=== PATIENT | female | born 1975 | race Caucasian/White ===

== ENCOUNTER 2019-04-17 10:18 | Emergency (ER) | payer MEDICARE, SELFPAY ==
[2019-04-17 10:26] VITALS: BP 136/67; PULSE 81; RESP 18; TEMP 37.4; O2SAT 98
--- NOTE | 2019-04-17 10:39 | ED.URI ---
HPI - URI/Sore Throat General Chief Complaint: Upper Respiratory Infection Stated Complaint: cough/congestion Time Seen by Provider: 04/17/19 10:39 Source: patient and RN notes reviewed Mode of arrival: ambulatory Limitations: no limitations History of Present Illness HPI Narrative: 43-year-old female presents to [facility] care with complaints of 1 week duration of chest congestion cough with expectoration of yellow mucus. Patient denies any nasal congestion or drainage, states some sore throat but feels it is from her coughing, denies pain with swallowing. Patient denies any acute fevers or chills or sweats does admit to having some wheezing and dyspnea with exertion. SAO2 98% on room air. MD elicited complaint: cough and sore throat Pertinent past history: other (bronchitis) Onset (ago): week(s) (1) Consistency: constant Severity: moderate Description of mucous: yellow Exacerbating factors: exertion and deep breaths Relieving factors: nothing Associated symptoms: sore throat, cough and shortness of breath Treatments prior to arrival: acetaminophen Related Data Home Medications Medication Instructions Recorded Confirmed amitriptyline 04/17/19 carbamazepine 04/17/19 ergocalciferol (vitamin D2) 04/17/19 gabapentin 04/17/19 naproxen 04/17/19 omeprazole 04/17/19 potassium chloride meq PO 04/17/19 Allergies Allergy/AdvReac Type Severity Reaction Status Date / Time hydrocodone Allergy HIVES Verified 04/17/19 10:33 Review of Systems Review of Systems: Narrative: CONSTITUTIONAL: Denies fever, chills, or sweats. EYES: Denies visual changes, redness, or discharge. ENT: Denies rhinorrhea, congestion, positive sore throat, or otalgia. CARDIOVASCULAR: Denies chest pain, palpitations, or edema. RESPIRATORY: Positive cough or dyspnea with exertion GASTROINTESTINAL: Denies abdominal pain, nausea, vomiting, or diarrhea. GENITOURINARY: Denies dysuria or hematuria. SKIN: Denies rash or itching. MUSCULOSKELETAL: Denies back pain, joint pain, or myalgia. NEUROLOGIC: Denies headache, numbness, or weakness. PSYCHIATRIC: Denies anxiety or depression. All systems reviewed & are unremarkable except as noted in HPI and below PMFSH Past Medical History Medical History (Updated 04/17/19 @ 16:43 by Jane Howard NP) Epilepsy Lower leg fracture Surgical History Surgical History (Updated 04/17/19 @ 10:56 by Jane Howard NP) Gastric bypass status for obesity History of endometrial ablation Hx of breast reduction, elective Tubal ligation status Social History Social History (Updated 04/17/19 @ 16:40 by Jane Howard NP) Smoking status: Never smoker Alcohol intake: never Living arrangements: with family Gender identity (if verbalized by the patient): Female Comments At time of signature, agree with nursing past medical, surgical, social history. There is no relevant family history pertinent to the presenting complaint Exam Narrative: Exam Narrative: GENERAL: Well-appearing, well-nourished, and in no acute distress. HEAD: Normocephalic, atraumatic. EYES: PERRLA and EOMI. ENT: Nares clear, no rhinorrhea or epistaxis. Mucous membranes moist. TMs normal with good light reflex, throat red no exudate or lesions or tonsillar swelling NECK: Supple. No lymphadenopathy CHEST: Scattered wheezing on auscultation. No respiratory distress. Dyspnea on exertion SaO2 98% on room air. No tachypnea or accessory muscle use able to speak in full sentences HEART: Regular rate and rhythm. No murmur heard. Normal peripheral pulses. ABDOMEN: Soft, nontender, nondistended, normal active bowel sounds. EXTREMITIES: Normal range of motion. No edema. SKIN: Warm, dry, no rash. NEURO: No focal deficits. Alert and oriented x3. Course Vital Signs Vital signs: Vital Signs Temperature 37.4 C 04/17/19 10:26 Pulse Rate 81 04/17/19 10:26 Respiratory Rate 18 04/17/19 10:26 Blood Pressure 136/67 04/17/19 10:26
== END 2019-04-17 11:00 | disposition home or self-care (01) ==
PROVIDERS: Emergency Provider Registered Nurse; PCP Anesthesiology
DX: J40 Bronchitis, not specified as acute or chronic (principal); J02.9 Acute pharyngitis, unspecified; Z98.84 Bariatric surgery status; G40.909 Epilepsy, unspecified, not intractable, without status epilepticus
CPT/HCPCS: 99213; G0463

== ENCOUNTER 2019-07-26 17:27 | Emergency (ER) | payer MEDICARE, SELFPAY ==
[2019-07-26 17:41] VITALS: BP 139/93; PULSE 90; RESP 16; TEMP 37.5; O2SAT 98
--- NOTE | 2019-07-26 17:51 | ED.GENADULT ---
HPI - General Adult General Chief complaint: Extremity Injury, Upper Stated complaint: head injury Time Seen by Provider: 07/26/19 17:51 Source: patient and RN notes reviewed Mode of arrival: ambulatory Limitations: no limitations History of Present Illness HPI narrative: 43-year-old female present with complains of pain and laceration of head (left frontal scalp) caused by trunk of car coming down on her head approximately 30 minutes prior to arrival. No loss of consciousness, blurred vision, double vision, dizziness, or seizure activity. Denies vertigo or immobility. Denies numbness or tingling, or weakness of upper or lower extremities. No foreign body sensation. Tetanus unknown, will up date today. Toya denies being , LMP unknown due to uterine ablation. The patient reports she have not been diagnosed with COVID-19. The patient reports she is not waiting for the results of a COVID-19 lab test. The patient reports she do not have fever, chills, weakness, fatigue, myalgia, or facial swelling. The patient reports she do not have a new or worsening cough or shortness of breath. Denies chest pain. The patient reports she do not have any rhinorrhea, congestion, sore throat, nausea, vomiting, abdominal pain, and diarrhea. Tolerating po intake well. Denies recent traveling. Denies concerns for COVID-19 or exposures been home since [id number] order except for essential household needs and return home. At this time, patient is not suspected of having COVID-19. Some parts of this dictation were generated by voice recognition software and may contain typographical and/or grammatical inaccuracies Related Data Home Medications Medication Instructions Recorded Confirmed amitriptyline 04/17/19 ergocalciferol (vitamin D2) 04/17/19 omeprazole 04/17/19 potassium chloride meq PO 04/17/19 carbamazepine 07/26/19 gabapentin 07/26/19 Allergies Allergy/AdvReac Type Severity Reaction Status Date / Time hydrocodone Allergy HIVES Verified 04/17/19 10:33 Review of Systems Review of Systems: Narrative: CONSTITUTIONAL: Denies fever, chills, sweats. EYES: Denies visual changes, redness, discharge. ENT: Denies rhinorrhea, congestion, sore throat, otalgia. CARDIOVASCULAR: Denies chest pain, palpitations, edema. RESPIRATORY: Denies dyspnea, wheezing, cough. GASTROINTESTINAL: Denies abdominal pain, nausea, vomiting, diarrhea. GENITOURINARY: Denies dysuria, hematuria, abnormal discharge. SKIN: Complains of pain and laceration of head (left frontal scalp). MUSCULOSKELETAL: Denies acute back pain, joint pain, or myalgia. NEUROLOGIC: Denies numbness, or focal weakness. PSYCHIATRIC: Denies anxiety or depression. All other systems reviewed & are unremarkable except as noted in HPI and below. [facility] Past Medical History Medical History (Updated 07/27/19 @ 00:00 by Sony Davila) Epilepsy Lower leg fracture Obese Surgical History Surgical History Gastric bypass status for obesity History of endometrial ablation Hx of breast reduction, elective Tubal ligation status Family History Family History (Updated 07/26/19 @ 18:13 by FREDO Mansfield) Father , Due to MVC No problems noted. Mother , R/T smoking Emphysema No problems noted. Social History Social History (Updated 07/26/19 @ 18:14 by FREDO Mansfield) Smoking status: Never smoker Tobacco type: cigarettes Second hand tobacco smoke exposure: No Alcohol intake: never Substance use: never Living arrangements: with family Occupation/Education: other Additional occupation/education comments: Disable Gender identity (if verbalized by the patient): Female Comments At time of signature, agree with nurse past medical, surgical, social, and family history. There is no relevant family history pertinent to the presenting complain
[2019-07-26] MEDS: TETANUS,DIPHTHERIA,AC PERTUSSIS ADULT 0.5 ML (ADACEL) IM (18:24)
--- NOTE | 2019-07-26 18:34 | PC.NURSE ---
Tylenol 1,000 mg given po at 1824.Bracelet scanned and each 500 mg Tylenol x2 was scanned. Taken without difficulty.
== END 2019-07-26 18:43 | disposition home or self-care (01) ==
PROVIDERS: Emergency Provider Nurse Practitioner Family
DX: S01.01XA Laceration without foreign body of scalp, initial encounter (principal); G40.909 Epilepsy, unspecified, not intractable, without status epilepticus; E66.9 Obesity, unspecified; Z68.41 Body mass index [BMI] 40.0-44.9, adult; Z23 Encounter for immunization; Z98.84 Bariatric surgery status; R03.0 Elevated blood-pressure reading, without diagnosis of hypertension; W20.8XXA Other cause of strike by thrown, projected or falling object, initial encounter
CPT/HCPCS: 90471; 90715; 99212; G0463

== ENCOUNTER 2020-01-25 07:05 | Outpatient (NON) | payer MEDICARE, SELFPAY ==
[2020-01-25 18:29] LABS: SARS-CoV-2 RNA PCR Positive
== END 2020-01-25 07:06 ==
LOC: ANHCOVIDDT 07:09
PROVIDERS: Visit Provider Student in an Organized Health Care Education/Training Program
DX: U07.1 COVID-19 (principal)
CPT/HCPCS: 87635; C9803; U0003

== ENCOUNTER 2020-03-28 16:06 | Emergency (ER) | payer MEDICARE, SELFPAY ==
[2020-03-28] VITALS (16 sets, daily range): BP systolic 125–180; BP diastolic 42–136; PULSE 78–83; RESP 18; TEMP 36.8; O2SAT 92–100
--- NOTE | ~2020-03-28 | CT_ITS ---
EXAMINATION: CT brain wo con DATE: 03/28/2020 17:33 INDICATION: New onset of headaches. History of epilepsy. TECHNIQUE: Computed tomography (CT) of the head was performed without intravenous contrast. The dose- length product was 605.33 mGy-cm. Automated exposure control and iterative reconstruction technique were employed. COMPARISON: None FINDINGS: There is a right frontal ventriculoperitoneal shunt with the tip in the right lateral ventr icle. Mild ventriculomegaly. There is encephalomalacia of the right frontal lobe. There is suggestion of developmental dysgenesis. There are dystrophic calcifications in the right parietal lobe adjacen t to areas of encephalomalacia. No acute intracranial hemorrhage, infarction or mass. No prior studie s are available to assess for interval change. IMPRESSION: 1. No acute intracranial abnormality, although no prior studies are available to assess for interval change. 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 Right ventriculoperitoneal shunt in the right lateral ventricle with encephalomalacia of the right frontal-parietal lobes. Reviewed, dictated and finalized at location A. [employer] IMPRESSION: 1. No acute intracranial abnormality, although no prior studies are available t o assess for interval change. 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 Right ventriculoperiton eal shunt in the right lateral ventricle with encephalomalacia of the right fro ntal-parietal lobes.
--- NOTE | 2020-03-28 17:13 | ED.HA ---
HPI - Headache General Chief Complaint: Headache Stated Complaint: headaches Time Seen by Provider: 03/28/20 17:04 Source: patient Mode of arrival: ambulatory Limitations: no limitations History of Present Illness HPI Narrative: Patient is a 44-year-old female who presents complaining of intermittent headaches x2 weeks. Patient reports having intense headaches with pain that she rates as 10/10 that last approximately 20 minutes at a time. Patient reports these episodes have been happening 4-5 times a day. Patient denies a history of migraines. Patient has a history of seizures but reports not having a seizure in at least 6 year. Patient denies photophobia, blurred vision or nausea during headaches. Patient reports headaches resolved without [id number] medications. She reports headaches seem to be more intense with position changes. She denies active headache at this time. MD elicited complaint: headache Pertinent past history: other Related Data Home Medications Medication Instructions Recorded Confirmed amitriptyline 04/17/19 ergocalciferol (vitamin D2) 04/17/19 omeprazole 04/17/19 potassium chloride meq PO 04/17/19 carbamazepine 07/26/19 gabapentin 07/26/19 Allergies Allergy/AdvReac Type Severity Reaction Status Date / Time hydrocodone Allergy HIVES Verified 03/28/20 16:34 Review of Systems Review of Systems: Narrative: CONSTITUTIONAL: Denies fever, chills, or sweats. EYES: Denies visual changes, redness, or discharge. ENT: Denies rhinorrhea, congestion, sore throat, or otalgia. CARDIOVASCULAR: Denies chest pain, palpitations, or edema. RESPIRATORY: Denies cough or dyspnea. GASTROINTESTINAL: Denies abdominal pain, nausea, vomiting, or diarrhea. GENITOURINARY: Denies dysuria or hematuria. SKIN: Denies rash or itching. MUSCULOSKELETAL: Denies back pain, joint pain, or myalgia. NEUROLOGIC: Reports intermittent headaches, denies numbness, dizziness, or weakness. PSYCHIATRIC: Denies anxiety or depression. [facility] Past Medical History Medical History (Updated 03/28/20 @ 20:38 by FREDO Mallory) Epilepsy Lower leg fracture Obese Surgical History Surgical History (Updated 03/28/20 @ 20:08 by FREDO Mallory) Gastric bypass status for obesity History of endometrial ablation Hx of breast reduction, elective S/P FORCER MAKER shunt Tubal ligation status Family History Family History Father , Due to MVC No problems noted. Mother , R/T smoking Emphysema No problems noted. Social History Social History Smoking status: Never smoker Tobacco type: cigarettes Second hand tobacco smoke exposure: No Alcohol intake: never Substance use: never Additional occupation/education comments: Disable Gender identity (if verbalized by the patient): Female Comments At the time of signature, I have reviewed and agree with nursing past medical, surgical, social, and family history unless otherwise noted. Please see nursing chart for further information. There is no relevant family history pertinent to the presenting complaint. Exam Narrative: Exam Narrative: GENERAL: Well-appearing, well-nourished, and in no acute distress. HEAD: Normocephalic, atraumatic. EYES: EOMI. No redness or drainage. Conjunctiva are normal. ENT: Mucous membranes pink and moist. Nares clear. No rhinorrhea. TMs normal bilaterally. Throat normal. Uvula midline. NECK: AROM. Supple. No lymphadenopathy. CHEST: No respiratory distress. Clear to auscultation. HEART: Regular rate and rhythm. EXTREMITIES: Normal range of motion. No edema. SKIN: Warm, dry, no rash. NEURO: No focal deficits. Alert and oriented x3. Gait steady. PSYCH: Normal affect. No signs of depression or anxiety. Course Course Emergency Course: Patient has critical potassium at this time. Patient'
[2020-03-28] MEDS: SODIUM CHLORIDE 0.9% IV 1,000 ML 999 ML IV CONT (17:45)
[2020-03-28 18:52] LABS: Basophils Percent Auto 0.5 % (0.2-1.2); Eosinophils Absolute Auto 0.1 K/mm3 (0-0.3); Hematocrit 44.3 % (37.0-47.0); Hemoglobin 14.2 g/dL (12.0-15.0); Immature Granulocyte Absolute 0.02 K/mm3 (0.00-0.031); Immature Granulocyte Percent A 0.3 % (0-0.5); Lymphocytes Absolute Auto 1.76 K/mm3 (0.9-3.2); Lymphocytes Percent Auto 28.9 % (18.3-44.2); Mean Corpuscular HGB Conc 32.1 g/dl (32-36); Mean Corpuscular Volume 90.6 fl (80-100); Mean Platelet Volume 10.6 fl (7.4-10.4); Monocytes Absolute Auto 0.4 K/mm3 (0.1-0.6); Monocytes Percent Auto 6.6 % (2.6-8.5); Neutrophils Absolute Auto 3.8 K/mm3 (1.3-6.7); Neutrophils Percent Auto 62.7 % (45.5-73.1); Platelet Count Result 193 k/mm3 (150-375); Red Blood Count 4.89 M/mm3 (4.2-5.4); Red Cell Distribution Width 15.7 % (11.5-14.5); White Blood Count 6.1 K/mm3 (4.5-10.0)
[2020-03-28 19:09] LABS: Alanine Aminotransferase 11 U/L (4-35); Albumin Level 3.4 g/dL (3.5-5.1); Alkaline Phosphatase 176 U/L (38-126); Anion Gap 4 mmol/L (8-16); Aspartate Amino Transferase 19 U/L (14-36); Bilirubin,Total 0.4 mg/dL (0.2-1.3); Blood Urea Nitrogen 3 mg/dL (7-17); Calcium 8.4 mg/dL (8.4-10.2); Carbon Dioxide 27 mmol/L (22-30); Chloride 109 mmol/L (98-107); Estimated CRCL calculation 127 ml/min; Estimated Glomerular Filt Rate > 60; Glucose 83 mg/dL (65-105); Potassium 2.7 mmol/L (3.4-5.0); Sodium 140 mmol/L (137-145)
--- NOTE | 2020-03-28 19:47 | ECG_ITS ---
Measurements Intervals [place] Rate: 68 P: 29 NJ: 168 QRS: 35 QRSD: 81 T: -6 QT: 414 QTc: 441 Interpretive Statements SINUS RHYTHM BORDERLINE ST-T WAVE ABNORMALITY- ANT/INF LEADS BASELINE ARTIFACT- I, II, AVR BORDERLINE ECG Electronically Signed On 03-29-2020 7:06:54 RESIDENT ASSOCIATE by Dalton Blake D.O.
[2020-03-28] MEDS: POTASSIUM BICARBONATE 25 MEQ TABEF 50 MEQ PO (20:29)
== END 2020-03-28 20:50 | disposition left against medical advice (07) ==
PROVIDERS: Emergency Provider Nurse Practitioner; PCP Student in an Organized Health Care Education/Training Program
DX: R51.9 Headache, unspecified (principal); G40.909 Epilepsy, unspecified, not intractable, without status epilepticus
CPT/HCPCS: 36415; 70450; 80053; 85025; 93005; 96360; 99284; A9270; J7030

== ENCOUNTER 2020-03-30 16:04 | Emergency (ER) | payer MEDICARE, SELFPAY ==
[2020-03-30 16:10] VITALS: BP 138/82; PULSE 79; RESP 18; TEMP 36.2; O2SAT 98
[2020-03-30 16:25] LABS: Basophils Percent Auto 0.4 % (0.2-1.2); Eosinophils Absolute Auto 0.1 K/mm3 (0-0.3); Eosinophils Percent Auto 1.3 % (0-4.4); Hematocrit 41.3 % (37.0-47.0); Hemoglobin 13.6 g/dL (12.0-15.0); Immature Granulocyte Absolute 0.03 K/mm3 (0.00-0.031); Immature Granulocyte Percent A 0.3 % (0-0.5); Lymphocytes Absolute Auto 1.91 K/mm3 (0.9-3.2); Lymphocytes Percent Auto 21.4 % (18.3-44.2); Mean Corpuscular HGB Conc 32.9 g/dl (32-36); Mean Corpuscular Hemoglobin 29.6 pg (26-34); Mean Platelet Volume 10.9 fl (7.4-10.4); Monocytes Absolute Auto 0.6 K/mm3 (0.1-0.6); Monocytes Percent Auto 6.3 % (2.6-8.5); Neutrophils Absolute Auto 6.3 K/mm3 (1.3-6.7); Neutrophils Percent Auto 70.3 % (45.5-73.1); Platelet Count Result 218 k/mm3 (150-375); Red Blood Count 4.59 M/mm3 (4.2-5.4); Red Cell Distribution Width 15.6 % (11.5-14.5); White Blood Count 8.9 K/mm3 (4.5-10.0)
[2020-03-30 16:32] LABS: Alanine Aminotransferase 11 U/L (4-35); Albumin Level 3.6 g/dL (3.5-5.1); Alkaline Phosphatase 149 U/L (38-126); Anion Gap 4 mmol/L (8-16); Aspartate Amino Transferase 18 U/L (14-36); Bilirubin,Total 0.2 mg/dL (0.2-1.3); Blood Urea Nitrogen 9 mg/dL (7-17); Calcium 8.4 mg/dL (8.4-10.2); Carbon Dioxide 30 mmol/L (22-30); Chloride 104 mmol/L (98-107); Estimated CRCL calculation 106 ml/min; Estimated Glomerular Filt Rate > 60; Glucose 86 mg/dL (65-105); Potassium 3.2 mmol/L (3.4-5.0); Sodium 138 mmol/L (137-145)
--- NOTE | 2020-03-30 16:47 | PC.NURSE ---
Patient presents ambulatory to the room with steady gait. She reports only complaint is headache to the front of her head which has been present for approximately 1 day. Headache pain is rated 5/10 and described as dull. She denies any other symptoms. Patient has not taken any medication for the headache today.
--- NOTE | 2020-03-30 17:17 | ED.RECABL ---
HPI - Recheck/Abnormal Lab/Rx General Chief Complaint: Recheck/Abnormal Lab/Rx Stated Complaint: abnormal labs Time Seen by Provider: 03/30/20 16:51 Source: patient Mode of arrival: ambulatory Limitations: no limitations History of Present Illness HPI narrative: Patient presents to the emergency department for hypokalemia. Reports she was seen here for this a couple of days ago and signed out AMA. She has been taking [id number] potassium supplements since. Reports history of hypokalemia in the past, that she has attributed to her gastric bypass. Otherwise has no complaints right now. Related Data Home Medications Medication Instructions Recorded Confirmed amitriptyline 04/17/19 ergocalciferol (vitamin D2) 04/17/19 omeprazole 04/17/19 potassium chloride meq PO 04/17/19 carbamazepine 07/26/19 gabapentin 07/26/19 Allergies Allergy/AdvReac Type Severity Reaction Status Date / Time hydrocodone Allergy HIVES Verified 03/28/20 16:34 Review of Systems Review of Systems: Narrative: CONSTITUTIONAL: Denies fever CARDIOVASCULAR: Denies chest pain RESPIRATORY: Denies dyspnea. GASTROINTESTINAL: Denies abdominal pain, nausea, vomiting, or diarrhea. All systems reviewed & are unremarkable except as noted in HPI and below PMFSH Past Medical History Medical History (Updated 03/30/20 @ 17:20 by Rylie Pritchard PA-C) Epilepsy Lower leg fracture Obese Surgical History Surgical History (Updated 03/28/20 @ 20:08 by FREDO Mallory) Gastric bypass status for obesity History of endometrial ablation Hx of breast reduction, elective S/P CONTRACTS ADVISOR shunt Tubal ligation status Family History Family History Father , Due to MVC No problems noted. Mother , R/T smoking Emphysema No problems noted. Social History Social History Smoking status: Never smoker Tobacco type: cigarettes Second hand tobacco smoke exposure: No Alcohol intake: never Substance use: never Additional occupation/education comments: Disable Gender identity (if verbalized by the patient): Female Exam Narrative: Exam Narrative: GENERAL: Well-appearing, well-nourished, and in no acute distress. HEAD: Normocephalic, atraumatic. EYES: EOMI. ENT: Mucous membranes moist. Oropharynx without tonsillar hypertrophy exudate or other lesions. CHEST: Clear to auscultation. No respiratory distress. No wheezes rales or rhonchi HEART: Regular rate and rhythm. No murmur heard. Normal peripheral pulses. EXTREMITIES: Normal range of motion. No edema. SKIN: Warm, dry, no rash. NEURO: No focal deficits. Alert and oriented x3. PSYCH: Normal mood and affect Course Vital Signs Vital signs: Vital Signs Temperature 97.2 F L 03/30/20 16:10 Pulse Rate 79 03/30/20 16:10 Respiratory Rate 18 03/30/20 16:10 Blood Pressure 138/82 03/30/20 16:10 Pulse Oximetry 98 03/30/20 16:10 Temperature 97.2 F L 03/30/20 16:10 Pulse Rate 79 03/30/20 16:10 Respiratory Rate 18 03/30/20 16:10 Blood Pressure 138/82 03/30/20 16:10 Pulse Oximetry 98 03/30/20 16:10 MDM - Recheck/Abnormal Lab/Rx MDM Narrative Medical decision making narrative: Patient presents to the emergency department for hypokalemia. Potassium rechecked today is 3.2. Will be given a dose of oral potassium in the ED and was instructed to follow-up with her primary doctor. She has no other complaints today. She is stable and felt appropriate for further outpatient evaluation. She was given warnings to return the ER Lab Data Attestation: I reviewed the patient's lab results. Result diagrams: 03/30/20 16:14 03/30/20 16:14 Labs: Lab Results 03/30/20 03/30/20 Range/Units 16:14 16:14 WBC 8.9 (4.5-10.0) K/mm3 RBC 4.59 (4.2-5.4) M/mm3 Hgb 13.6 (12.0-15.0) g/dL Hct 41
[2020-03-30 18:04] VITALS: BP 130/88; PULSE 74; RESP 19; TEMP 36.6; O2SAT 97
[2020-03-30] MEDS: POTASSIUM CHLORIDE 20 MEQ TABLET 40 MEQ PO (18:46)
[2020-03-30 18:49] VITALS: PULSE 91; RESP 18; TEMP 36.3; O2SAT 98
== END 2020-03-30 18:52 | disposition home or self-care (01) ==
PROVIDERS: Emergency Provider Emergency Medicine; PCP Student in an Organized Health Care Education/Training Program
DX: E87.6 Hypokalemia (principal); G40.909 Epilepsy, unspecified, not intractable, without status epilepticus; E66.9 Obesity, unspecified; Z68.41 Body mass index [BMI] 40.0-44.9, adult; Z98.84 Bariatric surgery status
CPT/HCPCS: 36415; 80053; 85025; 99283; A9270

== ENCOUNTER → 2020-08-21 15:40 | Outpatient (CLI) | payer MEDICARE, SELFPAY ==
--- NOTE | ~2020-08-21 | MM_ITS ---
EXAMINATION: MM screening elyssa BI w venkat HISTORY: Screening TECHNIQUE: Craniocaudal and mediolateral oblique 3-D tomosynthesis images were obtained and synthetic 2-D images were generated. CAD analysis was submitted and interpreted. COMPARISON: No prior mammogram is available for comparison at this institution. BREAST PARENCHYMAL COMPOSITION: The breasts are almost entirely fatty. FINDINGS: There is no evidence of suspicious mass, calcification, or architectural distortion to sugg est malignancy in either breast. There has been no suspicious interval change. IMPRESSION: 1. No mammographic evidence of malignancy. 2. Recommend routine screening mammography in one year. BI-RADS Category 1: Negative Reviewed, dictated and finalized at location A.
== END ==
PROVIDERS: PCP Student in an Organized Health Care Education/Training Program; Visit Provider Student in an Organized Health Care Education/Training Program
DX: Z12.31 Encounter for screening mammogram for malignant neoplasm of breast (principal)
CPT/HCPCS: 77063; 77067

== ENCOUNTER 2021-07-30 11:39 | Emergency (ER) | payer MEDICARE, SELFPAY ==
--- NOTE | ~2021-07-30 | XR_ITS ---
EXAMINATION: XR knee LT 3V DATE: 07/30/2021 12:06 INDICATION: Left knee pain. Fall. TECHNIQUE: 4 views of left knee were obtained. COMPARISON: None. FINDINGS: Bone alignment is normal. No fracture. There is mild tricompartmental osteoarthritis. No kn ee joint effusion. IMPRESSION: 1. Mild left knee osteoarthritis. Reviewed, dictated and finalized at location A.
[2021-07-30 11:52] VITALS: BP 127/76; PULSE 72; RESP 18; TEMP 36.3; O2SAT 100
--- NOTE | 2021-07-30 11:55 | ED.EXTPRO ---
HPI - Extremity Problem General Chief complaint: Extremity Problem,Nontraumatic Stated complaint: Lt Knee Pain and Swelling Time Seen by Provider: 07/30/21 11:55 History of Present Illness HPI Narrative: Toya Ivy is a 45 yo female with PMH of epilepsy who [facility] after fall while on the floor tripped and hurt her left knee. The pain is now radiating to the back of the knee patient states that feels like it may have water on it It appears swollen, pain is worse with pain radiating to back of knee; taking tylenol, has not improved. She fell several times in water but no specific hard fall. Related Data Home Medications Medication Instructions Recorded Confirmed carbamazepine 300 mg 1 cap PO DAILY 07/30/21 07/30/21 capsule,extended release [id number] gabapentin 400 mg capsule 1 cap PO BID 07/30/21 07/30/21 Allergies Allergy/AdvReac Type Severity Reaction Status Date / Time hydrocodone AdvReac Mild HIVES Verified 07/30/21 11:44 Review of Systems Review of Systems: CONSTITUTIONAL: Denies fever, chills, sweats. EYES: Denies visual changes, redness, discharge. ENT: Denies rhinorrhea, congestion, sore throat, otalgia. CARDIOVASCULAR: Denies chest pain, palpitations, edema. RESPIRATORY: Denies dyspnea, wheezing, cough GASTROINTESTINAL: Denies abdominal pain, nausea, vomiting, diarrhea. GENITOURINARY: Denies dysuria, hematuria, abnormal discharge SKIN: Denies rash or itching. NEUROLOGIC: Denies numbness, or focal weakness. PSYCHIATRIC: Denies anxiety or depression. Left knee pain remote injury [facility] Past Medical History Medical History (Updated 07/30/21 @ 12:30 by Bri Lopez CNP) Bacterial meningitis Epilepsy Hydrocephalus Lower leg fracture Obese Surgical History Surgical History Gastric bypass status for obesity History of endometrial ablation Hx of breast reduction, elective S/P STAMPER BLOCKER shunt Tubal ligation status Family History Family History Father , Due to MVC No problems noted. Mother , R/T smoking Emphysema No problems noted. Social History Social History Smoking status: Never smoker Tobacco type: cigarettes Second hand tobacco smoke exposure: No Alcohol intake: never Substance use: never Additional occupation/education comments: Disable Gender identity (if verbalized by the patient): Female Comments At time of signature, I agree with nursing past medical, surgical, social and family history. There is no relevant family history pertinent to the presenting complaint. Exam Narrative: GENERAL: This is a well-nourished, well-developed patient, in mild distress. HEAD: normocephalic, atraumatic. EYES: Sclera clear/white. Vision is grossly intact. EARS: External ears normal, a Hearing grossly intact. NOSE: External nose normal without nasal discharge, nares without redness, no rhinorrhea. THROAT: Mucous membranes moist, NECK: Neck supple, non-tender CARDIOVASCULAR: Regular rate and rhythm without murmurs, gallops, or rubs. RESPIRATORY: Clear to auscultation. Breath sounds equal bilaterally. No wheezes, rales, or rhonchi. GASTROINTESTINAL: A not done SKIN: warm, intact with no suspicious lesions or rash, good texture and turgor. NEURO: awake, alert, and oriented to person, place and time. There were no obvious focal neurologic abnormalities. Steady gait EXTREMITIES: Normal range of motion. L knee: BACK: Nontender without deformity Course Course Emergency Course: Patient comes to [facility] for evaluation of left knee pain with remote injury ,after fall on while on [employer] X-ray of the knee shows mild knee arthritis with normal bone alignment no fracture and mild tricompartment compartmental osteoarthritis, no joint effusion presen
[2021-07-30 11:59] VITALS: BP 127/76; PULSE 72; RESP 18; TEMP 36.3; O2SAT 100
== END 2021-07-30 12:32 | disposition home or self-care (01) ==
PROVIDERS: Emergency Provider Nurse Practitioner; PCP Student in an Organized Health Care Education/Training Program
DX: M25.562 Pain in left knee (principal); G40.909 Epilepsy, unspecified, not intractable, without status epilepticus; E66.9 Obesity, unspecified; Z68.41 Body mass index [BMI] 40.0-44.9, adult; Q03.9 Congenital hydrocephalus, unspecified; Z98.2 Presence of cerebrospinal fluid drainage device
CPT/HCPCS: 73562; 99213; G0463; L1830

== ENCOUNTER 2021-09-08 10:03 | Emergency (ER) | payer MEDICARE, SELFPAY ==
--- NOTE | 2021-09-08 10:50 | ED.SKABFB ---
HPI - Skin/Abscess/Foreign Bdy General Chief complaint: Skin/Abscess/Foreign Body Stated complaint: rash Time Seen by Provider: 09/08/21 10:42 Source: patient Mode of arrival: ambulatory Limitations: no limitations History of Present Illness HPI narrative: Patient presents today complaining of a rash to her abdomen that she noted this morning. She reports burning to the rash, but denies itching. She has tried no [id number] treatment prior to arrival. She denies any new medications or household products such as laundry detergents, fabric softeners, new foods, new animal or plant contacts. She has not been on any recent antibiotics. No recent illnesses or fevers. Related Data Home Medications Medication Instructions Recorded Confirmed carbamazepine 300 mg 1 cap PO DAILY 07/30/21 09/08/21 capsule,extended release [id number] gabapentin 400 mg capsule 1 cap PO BID 07/30/21 07/30/21 Allergies Allergy/AdvReac Type Severity Reaction Status Date / Time hydrocodone AdvReac Mild HIVES Verified 07/30/21 11:44 Review of Systems Review of Systems: CONSTITUTIONAL: Denies body aches, fever, chills, or sweats. EYES: Denies visual changes, redness, or discharge. ENT: Denies rhinorrhea, congestion, sore throat, or otalgia. CARDIOVASCULAR: Denies chest pain, palpitations, or edema. RESPIRATORY: Denies cough or dyspnea. GASTROINTESTINAL: Denies abdominal pain, nausea, vomiting, or diarrhea. GENITOURINARY: Denies dysuria or hematuria. SKIN: Denies itching, or wounds.+ Rash MUSCULOSKELETAL: Denies back pain, joint pain, or myalgia. NEUROLOGIC: Denies headache, numbness, tingling, or weakness. PSYCH: Denies depression or anxiety. [facility] Past Medical History Medical History Bacterial meningitis Epilepsy Hydrocephalus Lower leg fracture Obese Surgical History Surgical History Gastric bypass status for obesity History of endometrial ablation Hx of breast reduction, elective S/P FIRST MATE shunt Tubal ligation status Family History Family History Father , Due to MVC No problems noted. Mother , R/T smoking Emphysema No problems noted. Social History Social History Smoking status: Never smoker Tobacco type: cigarettes Second hand tobacco smoke exposure: No Alcohol intake: never Substance use: never Additional occupation/education comments: Disable Gender identity (if verbalized by the patient): Female Comments At time of signature, I have reviewed and agree with nursing past medical, surgical, social and family history unless otherwise noted. Please see nursing chart for further information. There is no relevant family history pertinent to the presenting complaint Exam Narrative: GENERAL: Well-appearing, well-nourished, and in no acute distress. HEAD: Normocephalic, atraumatic. EYES: EOMI. No redness or drainage. Conjunctivae normal. ENT: Mucous membranes pink and moist. NECK: Normal AROM. CHEST: No respiratory distress. ABDOMEN: Soft, nontender, nondistended. MUSCULOSKELETAL: No bony tenderness. EXTREMITIES: Normal range of motion. No edema. SKIN: Warm, dry. Capillary refill normal. Normal skin turgor. Erythematous, blanchable, macular rash covering most of the abdomen, with few papules. The rash is sensitive to touch. No vesicles or areas of induration. Rash does not extend to any other parts of the body. NEURO: No focal deficits. Alert and oriented x3. Gait steady. PSYCH: Normal affect. No signs of depression or anxiety. Course Course Level of Care: Express Care Visit Vital Signs Vital signs: Vital Signs Temperature 98.5 F 09/08/21 10:52 Pulse Rate 97 09/08/21 10:52 Respiratory Rate 20 09/08/21 10:
[2021-09-08 10:52] VITALS: BP 131/89; PULSE 97; RESP 20; TEMP 36.9; O2SAT 99
== END 2021-09-08 11:01 | disposition home or self-care (01) ==
PROVIDERS: Emergency Provider Nurse Practitioner; PCP Student in an Organized Health Care Education/Training Program
DX: L30.9 Dermatitis, unspecified (principal); G40.909 Epilepsy, unspecified, not intractable, without status epilepticus; G91.9 Hydrocephalus, unspecified; Z98.2 Presence of cerebrospinal fluid drainage device; E66.9 Obesity, unspecified; Z68.41 Body mass index [BMI] 40.0-44.9, adult; Z86.61 Personal history of infections of the central nervous system; Z98.84 Bariatric surgery status
CPT/HCPCS: 99213; G0463

== ENCOUNTER 2022-01-24 10:30 | Emergency (ER) | payer MEDICARE, SELFPAY ==
--- NOTE | ~2022-01-24 | XR_ITS ---
EXAMINATION: SACRUM/COCCYX DATE: 01/24/2022 13:10 INDICATION: Tail bone pain and low back pain after fall TECHNIQUE: Three views sacrum/coccyx FINDINGS: No prior studies for comparison. There is no displaced fracture of the sacrum. The coccyx demonstrates overall normal morphology with out acute angulation. IMPRESSION: 1. No acute displaced osseous abnormality of the sacrum. Suspicion for occult or nondisplaced sacral fracture can either be evaluated with CT or MRI. 2. Grossly normal morphology to the coccyx without acute angulation. However, due to the wide range of normal variation of the coccyx, acute injury would be best evaluated by clinical examination and patient's symptoms. Reviewed, dictated and finalized at location A. BLACKER
--- NOTE | ~2022-01-24 | XR_ITS ---
XR lumbar spine min 4V 01/24/2022 13:10 Indication: Status post fall. Low back pain. Procedure: 5 views lumbar spine Comparison: No prior studies for comparison. Findings: There is a superior endplate compression fracture of L1 with approximately 30% loss of vert ebral body height, age indeterminate. Cannot exclude acute fracture. There is grade 1 spondylolisthes is at L5-S1 secondary to spondylolysis. Osteopenia. Impression: 1: Superior endplate compression fracture of L1, possibly acute. 2: Grade 1 spondylolisthesis at L5-S1 secondary to spondylolysis. Reviewed, dictated and finalized at location A. INSTRUMENT REPAIRER Impression: 1: Superior endplate compression fracture of L1, possibly acute. 2: Grade 1 spondylolisthesis at L5-S1 secondary to spondylolysis.
--- NOTE | ~2022-01-24 | CT_ITS ---
EXAMINATION: CT lumbar spine wo con DATE: 01/24/2022 14:46 INDICATION: L1 compression fx, include sacrum/coccyx . TECHNIQUE: Computed tomography (CT) of the lumbar spine was performed without intravenous contrast. A utomated exposure control and iterative reconstruction technique were employed. The dose-length produ ct was 1556.30 mGy-cm. COMPARISON: X-ray L-spine 01/24/2022. FINDINGS: 5 nonrib-bearing lumbar-type vertebral bodies. Pedicles intact. Normal vertebral body align ment. Moderate height loss at L1 with a superior endplate fracture that involves the anterior and pos terior cortices. 2 mm retropulsion. Mild disc bulge at L3-4. Moderate disc bulges at L4-5 and L5-S1. Moderate bilateral neural foraminal narrowing at L5-S1. No severe central canal stenosis. Bilateral p ars defects at L5, otherwise normal facets and posterior elements. IMPRESSION: L1 burst fracture with moderate height loss and 2 mm retropulsion. Reviewed, dictated and finalized at location K. [employer]FORMAT[employer] SPEC
[2022-01-24 11:13] VITALS: BP 135/90; PULSE 81; RESP 16; TEMP 36.4; O2SAT 99
--- NOTE | 2022-01-24 12:50 | ED.FALL ---
HPI - Fall General Chief Complaint: Fall Stated Complaint: fall Time Seen by Provider: 01/24/22 11:18 Source: patient Mode of arrival: ambulatory Limitations: no limitations History of Present Illness HPI Narrative: Patient is a 46-year-old female who presents the ED with report of a fall. Patient reports she was walking her dog this morning when she tripped and fell. She landed straight onto her back/buttocks. No head injury or LOC. She complains of pain to her lower back. Denies any other areas of pain, no neck pain, chest pain, difficulty breathing, abdominal pain, nausea, vomiting. Patient denies numbness, weakness, bowel or bladder incontinence. She has not taken anything for pain. Related Data Home Medications Medication Instructions Recorded Confirmed carbamazepine 300 mg 1 cap PO DAILY 07/30/21 09/08/21 capsule,extended release [id number] gabapentin 400 mg capsule 1 cap PO BID 07/30/21 07/30/21 Allergies Allergy/AdvReac Type Severity Reaction Status Date / Time hydrocodone AdvReac Mild HIVES Verified 01/24/22 11:13 Review of Systems Review of Systems: CONSTITUTIONAL: Denies fever, chills, or sweats. CARDIOVASCULAR: Denies chest pain. RESPIRATORY: Denies dyspnea. GASTROINTESTINAL: Denies abdominal pain, nausea, vomiting, incontinence, or diarrhea. GENITOURINARY: Denies incontinence, dysuria or hematuria. MUSCULOSKELETAL: Reports low back pain. Denies back pain. NEUROLOGIC: Denies HI, LOC, headache, numbness, tingling, or weakness. All systems reviewed & are unremarkable except as noted in HPI and below PMFSH Past Medical History Medical History Bacterial meningitis Epilepsy Hydrocephalus Lower leg fracture Obese Surgical History Surgical History Gastric bypass status for obesity History of endometrial ablation Hx of breast reduction, elective S/P SMOKE CHASER shunt Tubal ligation status Family History Family History Father , Due to MVC No problems noted. Mother , R/T smoking Emphysema No problems noted. Social History Social History (Reviewed 01/24/22 @ 13:00 by DONNIE Ivey Smoking status: Never smoker Tobacco type: cigarettes Second hand tobacco smoke exposure: No Alcohol intake: never Substance use: never Additional occupation/education comments: Disable Gender identity (if verbalized by the patient): Female Exam Narrative: GENERAL: Well appearing, morbidly obese, non-toxic, in no acute distress. HEAD: Normocephalic, atraumatic. NECK: Supple. No adenopathy, no masses. No midline spinal tenderness. RESPIRATORY: Airway patent, respirations nonlabored. Clear to auscultation bilaterally, no rales, rhonchi, wheezing. CARDIOVASCULAR: Regular rate and rhythm without murmurs, rubs, or gallops. Radial pulses 2+ and equal bilaterally. MUSCULOSKELETAL: Moves all extremities. Strength/ROM intact without gross deformities. Tenderness to midline lumbar spine. No bony deformities or palpable step-offs. Tenderness extending into bilateral paraspinal muscle regions. SKIN: Warm, dry, normal color. No rashes. Sensation intact. NEURO: A&O X3. Speech clear. Cranial nerves II-XII grossly intact. Steady gait. No ataxic movements. Strength 5/5 in lower extremities bilaterally. PSYCHIATRIC: Appropriate mood and affect. Normal interaction. Course Consultations Consultation #1: Discussed case with Dr. Strickalnd, neurosurgery, will see patient in office. She reviewed images herself. Advised this seems more consistent with a compression fracture, not burst fracture. Fracture is stable. Patient may require back brace in future. Date: 01/24/22 Vital Signs Vital signs: Vital Signs Temperature 97.6 F 01/24/22 11:13 Pulse Rate 81 01/24/22 11:13 Respiratory Rate 16
[2022-01-24] MEDS: ONDANSETRON INJ 4 MG/2 ML VIAL IV PUSH (13:56)
[2022-01-24] MEDS: MORPHINE SULFATE (*CRX) 4 MG/ML INJ IV PUSH ×2 (13:57→16:44)
[2022-01-24 15:16] VITALS: BP 127/75; PULSE 78; RESP 16; O2SAT 100
[2022-01-24 17:41] VITALS: BP 146/76; PULSE 81; RESP 16; O2SAT 99
== END 2022-01-24 17:42 | disposition home or self-care (01) ==
PROVIDERS: Emergency Provider Physician Assistant; PCP Student in an Organized Health Care Education/Training Program
DX: S32.019A Unspecified fracture of first lumbar vertebra, initial encounter for closed fracture (principal); W01.0XXA Fall on same level from slipping, tripping and stumbling without subsequent striking against object, initial encounter
CPT/HCPCS: 72110; 72131; 72220; 96365; 96375; 96376; 99284; J0131; J2270; J2405

== ENCOUNTER → 2023-02-09 15:20 | Outpatient (CLI) | payer MEDICARE, SELFPAY ==
--- NOTE | ~2023-02-09 | MM_ITS ---
EXAMINATION: MM screening [facility] BI w venkat HISTORY: Screening mammogram TECHNIQUE: Craniocaudal and mediolateral oblique 3-D tomosynthesis images were obtained and synthetic 2-D images were generated. CAD analysis was submitted and interpreted. COMPARISON: 07/25/2020 bilateral screening mammogram BREAST PARENCHYMAL COMPOSITION: The breasts are almost entirely fatty. FINDINGS: There is no evidence of suspicious mass, calcification, or architectural distortion to sugg est malignancy in either breast. There has been no suspicious interval change. IMPRESSION: 1. No mammographic evidence of malignancy. 2. Recommend routine screening mammography in one year. BI-RADS Category 1: Negative Reviewed, dictated and finalized at location A. NDS KEEPER
== END ==
PROVIDERS: PCP Nurse Practitioner Family; Visit Provider Nurse Practitioner Family
DX: Z12.31 Encounter for screening mammogram for malignant neoplasm of breast (principal)
CPT/HCPCS: 77063; 77067

== ENCOUNTER 2023-05-08 04:54 | Emergency (ER) | payer MEDICARE, SELFPAY ==
[2023-05-08] VITALS (19 sets, daily range): BP systolic 104–130; BP diastolic 50–78; PULSE 62–91; RESP 14–23; TEMP 36.4–36.8; O2SAT 97–100
--- NOTE | ~2023-05-08 | XR_ITS ---
EXAMINATION: XR chest 1V portable DATE: 05/08/2023 05:38 INDICATION: Altered mental status TECHNIQUE: frontal view of the chest was obtained. COMPARISON: None FINDINGS: Small lung volumes. No focal airspace opacities, pulmonary edema, pleural effusion or pneumothorax. T he cardiomediastinal silhouette is normal. There is a ventricular shunt catheter projecting over the right side of the neck and mediastinum with distal tip projecting over the right atrium. There is a d iscontinuity in the catheter at the level of the base of the neck where there also appears to be some calcific encrustation along the catheter. IMPRESSION: 1. Small lung volumes. No acute cardiopulmonary disease. 2. Likely ventriculoatrial shunt catheter with discontinuity in the catheter at the level of the righ t base of the neck. Reviewed, dictated and finalized at location A. IMPRESSION: 1. Small lung volumes. No acute cardiopulmonary disease. 2. Likely ventriculoatrial shunt catheter with discontinuity in the catheter at the level of the right base of the neck.
--- NOTE | ~2023-05-08 | CT_ITS ---
EXAMINATION: CT brain wo con DATE: 05/08/2023 05:44 INDICATION: Altered mental status TECHNIQUE: Computed tomography (CT) of the head was performed without intravenous contrast. Sagittal and coronal reconstructions were performed. The mA was adjusted according to patient size. Iterative reconstruction technique was employed. The dose-length product was 756.00 mGy-cm. COMPARISON: 03/28/2020 FINDINGS: Unchanged right frontal ventricular shunt with distal tip in the anterior horn of the right ventricle . There is unchanged ventriculomegaly with effacement of the sulci. The shunt extends through an unch anged moderate size region of encephalomalacia in the right frontal lobe which could be developmental , related to the shunt or other insult. No acute intracranial hemorrhage, acute infarction or abnorma l extra axial fluid collection. No mass/mass effect. The orbits, paranasal sinuses and mastoid air ce lls are normal. IMPRESSION: 1. No interval change in prominent ventriculomegaly with unchanged right frontal ventricular shunt. 2. Continued moderate-sized region of encephalomalacia in the right frontal lobe which could be devel opmental or sequela of old insult. Reviewed, dictated and finalized at location A. IMPRESSION: 1. No interval change in prominent ventriculomegaly with unchanged right fronta l ventricular shunt. 2. Continued moderate-sized region of encephalomalacia in the right frontal lob e which could be developmental or sequela of old insult.
--- NOTE | 2023-05-08 05:06 | ECG_ITS ---
Measurements Intervals [place] Rate: 73 P: 26 DE: 161 QRS: 38 QRSD: 78 T: 37 QT: 435 QTc: 481 Interpretive Statements SINUS RHYTHM BORDERLINE ST-T WAVE ABNORMALITY- ANT/INF LEADS BASELINE ARTIFACT- I, II, III, AVR, AVL, V1 BORDERLINE ECG NO PREVIOUS ECG AVAILABLE FOR COMPARISON Electronically Signed On 05-08-2023 7:57:24 CDT by Dalton Blake D.O.
--- NOTE | 2023-05-08 05:20 | ED.AMS ---
HPI - Altered Mental Status General Chief Complaint: Altered Mental Status <Pawel Awan MD - Last Filed: 05/17/23 07:37> Stated Complaint: AMS, SZ HISTORY <Pawel Awan MD - Last Filed: 05/17/23 07:37> History of Present Illness HPI narrative: Patient is a 47-year-old female who presents to the emergency department this morning accompanied by her due to concern for altered mental status. called EMS stating that the patient has not been feeling well for the past few days stating that she has had a decrease in her appetite, has been complaining of headaches, and has been sleeping most of the day due to feeling generally weak. Due to this, patient has not taken her seizure medication for the past 3. Patient is currently answering all my questions appropriately and following commands. Denies any chest pain or current headache and is currently denying any symptoms at this time. Patient and deny any sick contacts at home or exposure to known COVID or influenza. There are no other modifying, alleviating, or precipitating factors at this time. <Pawel Awan MD - Last Filed: 05/17/23 07:37> Related Data Home Medications: Home Medications Medication Instructions Recorded Confirmed carbamazepine 300 mg 1 cap PO DAILY 07/30/21 04/27/23 capsule,extended release [id number] cholecalciferol (vitamin D3) 50 50 mcg PO DAILY 01/25/23 04/27/23 mcg (2,000 unit) capsule gabapentin 400 mg capsule 800 mg PO BID 01/25/23 04/27/23 mecobalamin (vitamin B12) 2,500 mcg PO 01/25/23 04/27/23 mcg chewable tablet <Pawel Awan MD - Last Filed: 05/17/23 07:37> Allergies/Adverse Reactions: Allergies Allergy/AdvReac Type Severity Reaction Status Date / Time hydrocodone AdvReac Mild HIVES Verified 05/08/23 05:07 <Pawel Awan MD - Last Filed: 05/17/23 07:37> Review of Systems Review of Systems: All systems are reviewed and are negative unless stated otherwise in the HPI. <Pawel Awan MD - Last Filed: 05/17/23 07:37> PMFSH Past Medical History Medical History: Medical History B12 deficiency Bacterial meningitis Elevated blood pressure reading in office without diagnosis of hypertension Encounter to establish care Epilepsy Hydrocephalus Hyperlipidemia Hypertension Lower leg fracture Morbid obesity with BMI of 40.0-44.9, adult Obese Rib pain on right side Screening mammogram for breast cancer Seizure disorder Vitamin D deficiency Wellness examination <Pawel Awan MD - Last Filed: 05/17/23 07:37> Surgical History Surgical History: Surgical History Gastric bypass status for obesity History of endometrial ablation Hx of breast reduction, elective Hx of cholecystectomy S/P [employer] shunt Tubal ligation status <Pawel Awan MD - Last Filed: 05/17/23 07:37> Family History Family History: Family History Father , Due to MVC No problems noted. Mother , R/T smoking Emphysema Depression <Pawel Awan MD - Last Filed: 05/17/23 07:37> Social History Social History: Social History Smoking status: Never smoker Tobacco type: cigarettes Second hand tobacco smoke exposure: No Alcohol intake: never Substance use: never Living arrangements: with family Occupation/Education: other Additional occupation/education comments: Disable Gender identity (if verbalized by the patient): Female <Pawel Awan MD - Last Filed: 05/17/23 07:37> Exam Narrative: General: Alert, awake, afebrile, in no acute distress. HEENT: PERRL, no rhinorrhea, no post nasal drip, oropharynx clear. Neck: Trachea midline, no JVD, no lymphadenopathy. Cardiovascular: Regul
--- NOTE | 2023-05-08 05:39 | PC.NURSE ---
Patient in imaging at this time, patient on monitor, VSS.
[2023-05-08] MEDS: SODIUM CHLORIDE 0.9% IV 1,000 ML 999 ML IV CONT (05:46)
[2023-05-08 05:51] LABS: Ammonia < 9 umol/L (9-30)
[2023-05-08 05:53] LABS: Alanine Aminotransferase 22 U/L (6-35); Albumin Level 3.8 g/dL (3.5-5.1); Alkaline Phosphatase 133 U/L (38-126); Anion Gap 7 mmol/L (8-16); Aspartate Amino Transferase 32 U/L (14-36); Bilirubin,Total 0.8 mg/dL (0.2-1.3); Blood Urea Nitrogen 14 mg/dL (7-17); Calcium 9.3 mg/dL (8.4-10.2); Carbon Dioxide 26 mmol/L (22-30); Chloride 106 mmol/L (98-107); Creatine Kinase 37 U/L (30-135); Estimated CRCL calculation 106 ml/min; Estimated Glomerular Filt Rate > 60; Glucose 118 mg/dL (65-110); Magnesium 2.1 mg/dL (1.6-2.3); Potassium 3.2 mmol/L (3.4-5.0); Sodium 139 mmol/L (137-145)
[2023-05-08 05:54] LABS: Lactic Acid Reflex 0.8 mmol/L (0.7-2.0)
[2023-05-08 06:07] LABS: Basophils Percent Auto 0.4 % (0.2-1.2); Eosinophils Percent Auto 0.4 % (0-4.4); Hematocrit 42.6 % (37.0-47.0); Hemoglobin 14.2 g/dL (12.0-15.0); Immature Granulocyte Absolute 0.03 K/mm3 (0.00-0.031); Immature Granulocyte Percent A 0.4 % (0-0.5); Lymphocytes Absolute Auto 1.28 K/mm3 (0.9-3.2); Lymphocytes Percent Auto 15.4 % (18.3-44.2); Mean Corpuscular HGB Conc 33.3 g/dl (32-36); Mean Corpuscular Hemoglobin 32.4 pg (26-34); Mean Corpuscular Volume 97.3 fl (80-100); Mean Platelet Volume 10.9 fl (7.4-10.4); Monocytes Absolute Auto 0.5 K/mm3 (0.1-0.6); Monocytes Percent Auto 6.1 % (2.6-8.5); Neutrophils Absolute Auto 6.4 K/mm3 (1.3-6.7); Neutrophils Percent Auto 77.3 % (45.5-73.1); Platelet Count Result 191 k/mm3 (150-375); Red Blood Count 4.38 M/mm3 (4.2-5.4); Red Cell Distribution Width 12.3 % (11.5-14.5); White Blood Count 8.3 K/mm3 (4.5-10.0)
--- NOTE | 2023-05-08 06:17 | PC.NURSE ---
Patient still drowsy, arousable to verbal stimuli. Informed ERP that patient is still drowsy and would recommend switching potassium from PO to IV. ERP notified and aware, orders to be placed.
[2023-05-08 06:19] LABS: Influenza A QL RT-PCR Negative (Negative); Influenza B QL RT-PCR Negative (Negative); RSV RNA, RT-PCR Negative (Negative); SARS-CoV-2 RNA PCR Negative (Negative)
[2023-05-08] MEDS: KCL 20 MEQ/SW 100 ML 100 ML 50 MEQ IVPB (06:51)
[2023-05-08] MEDS: KETOROLAC 15 MG/ML VIAL (*BKC) IV PUSH (07:19)
[2023-05-08 07:55] LABS: Appearance Urine Clear (Clear); Bacteria Urine None Seen /hpf; Bilirubin Urine 2+ (Negative); Blood Urine Negative (Negative); Color Urine Dark Yellow (Yellow); Glucose Urine UA Negative (Negative); Ketones Urine 4+ mg/dL (Negative); Leukocyte Esterase Ur Trace LEU/UL (Negative); Nitrate Urine Negative (Negative); Non Pathogenic Casts 0-2; Protein Urine Negative (Negative); RBC Urine 0-2 /hpf (0-2); Specific Grav Ur 1.029 (1.001-1.035); Squamous Epithelial Cell Urine None Seen /hpf (Few); WBC Urine 0-5 /hpf (0-3); pH Urine 5.5 (5.0-9.0)
[2023-05-08 08:06] LABS: Add Urine Microscopic? YES
== END 2023-05-08 09:10 | disposition home or self-care (01) ==
PROVIDERS: Emergency Provider Emergency Medicine; PCP Nurse Practitioner Family
DX: E87.6 Hypokalemia (principal); Z20.822 Contact with and (suspected) exposure to COVID-19; G40.909 Epilepsy, unspecified, not intractable, without status epilepticus; G91.9 Hydrocephalus, unspecified; I10 Essential (primary) hypertension; E53.8 Deficiency of other specified B group vitamins; E55.9 Vitamin D deficiency, unspecified; E78.5 Hyperlipidemia, unspecified; E66.01 Morbid (severe) obesity due to excess calories; Z68.41 Body mass index [BMI] 40.0-44.9, adult; Z98.2 Presence of cerebrospinal fluid drainage device; Z98.84 Bariatric surgery status; Z90.49 Acquired absence of other specified parts of digestive tract; R94.31 Abnormal electrocardiogram [ECG] [EKG]
CPT/HCPCS: 36415; 70450; 71045; 80053; 81025; 82140; 82550; 83605; 83735; 85025; 87637; 93005; 96361; 96365; 96375; 99284; J1885; J3480; J7030

== ENCOUNTER 2023-06-07 15:34 | Outpatient (CLI) | payer MEDICARE, SELFPAY ==
--- NOTE | ~2023-06-07 | XR_ITS ---
EXAMINATION: XR knee LT 3V DATE: 06/07/2023 16:08 INDICATION: Left knee pain. TECHNIQUE: 4 views of left knee including standing views were obtained. COMPARISON: None. FINDINGS: Bone alignment is normal. No fracture. There is mild tricompartmental osteoarthritis. No kn ee joint effusion. IMPRESSION: 1. Mild left knee osteoarthritis. Reviewed, dictated and finalized at location E.
--- NOTE | ~2023-06-07 | US_ITS ---
EXAMINATION: US venous doppler [facility] DATE: 06/07/2023 16:01 INDICATION: Left lower limb pain. TECHNIQUE: Grayscale ultrasound images without and with compression and Doppler ultrasound images of the left lower extremity veins were obtained. COMPARISON: None. FINDINGS: There is thrombus in left common femoral vein, profunda (deep) femoral vein, femoral vein, popliteal vein, peroneal veins, and posterior tibial veins. The greater saphenous vein outflow is patent. IMPRESSION: 1. Extensive deep vein thrombosis in left lower limb. Reviewed, dictated and finalized at location E.
== END 2023-06-07 15:35 | disposition home or self-care (01) ==
LOC: ANHIMG 15:36
PROVIDERS: PCP Nurse Practitioner Family; Visit Provider Nurse Practitioner Family
DX: M17.12 Unilateral primary osteoarthritis, left knee (principal); I82.412 Acute embolism and thrombosis of left femoral vein; I82.432 Acute embolism and thrombosis of left popliteal vein; I82.452 Acute embolism and thrombosis of left peroneal vein; I82.442 Acute embolism and thrombosis of left tibial vein; M79.662 Pain in left lower leg; M25.562 Pain in left knee
CPT/HCPCS: 73562; 93971

== ENCOUNTER 2023-12-20 12:40 | Outpatient (CLI) | payer MEDICARE, SELFPAY ==
--- NOTE | ~2023-12-20 | US_ITS ---
EXAMINATION: US venous doppler [facility] DATE: 12/20/2023 13:17 INDICATION: Acute embolism and thrombosis of unspecified deep vein. TECHNIQUE: Grayscale ultrasound images without and with compression and Doppler ultrasound images of the left lower extremity veins were obtained. COMPARISON: Ultrasound 06/07/2023 FINDINGS: The visualized portions of left common femoral vein, profunda (deep) femoral vein, femoral vein, brittany meli veins, posterior tibial veins, and greater saphenous vein outflow are patent. There is nonocclus wilman thrombus in left popliteal vein. IMPRESSION: 1. Deep vein thrombosis involving left popliteal vein with interval improvement in distribution. Reviewed, dictated and finalized at location B. IMPRESSION: 1. Deep vein thrombosis involving left popliteal vein with interval improvemen t in distribution.
== END 2023-12-20 12:41 | disposition home or self-care (01) ==
PROVIDERS: PCP Nurse Practitioner Family; Visit Provider Nurse Practitioner Family
DX: I82.432 Acute embolism and thrombosis of left popliteal vein (principal); I82.402 Acute embolism and thrombosis of unspecified deep veins of left lower extremity
CPT/HCPCS: 93971

== ENCOUNTER 2024-04-03 07:10 | Outpatient (CLI) | payer MEDICARE, SELFPAY ==
--- NOTE | ~2024-04-03 | US_ITS ---
EXAMINATION: US right upper quadrant DATE: 04/03/2024 08:16 INDICATION: Abnormal levels of other serum enzymes. TECHNIQUE: Multiple grayscale and Doppler ultrasound images of the abdomen were obtained. COMPARISON: None FINDINGS: The visualized portions of the head and body of the pancreas are normal. The liver is saida l without focal lesion. No liver surface nodularity. There is normal flow in main portal vein. The ga llbladder is absent. The common duct is normal and measures 5 mm. IMPRESSION: 1. Normal right upper quadrant ultrasound status post cholecystectomy. Reviewed, dictated and finalized at location A. T METAL SMITH
== END 2024-04-03 07:11 | disposition home or self-care (01) ==
LOC: MICIMG 07:11
PROVIDERS: PCP Nurse Practitioner Family; Visit Provider Nurse Practitioner Family
DX: R74.8 Abnormal levels of other serum enzymes (principal); Z90.49 Acquired absence of other specified parts of digestive tract
CPT/HCPCS: 76705

== ENCOUNTER 2024-04-14 14:45 | Outpatient (CLI) | payer MEDICARE, SELFPAY ==
--- NOTE | ~2024-04-14 | MM_ITS ---
EXAMINATION: MM screening [facility] BI w venkat HISTORY: Screening TECHNIQUE: Craniocaudal and mediolateral oblique 3-D tomosynthesis images were obtained and synthetic 2-D images were generated. CAD analysis was submitted and interpreted. COMPARISON: Comparison to multiple prior studies sequentially, with oldest reviewed study dated 08/21. BREAST PARENCHYMAL COMPOSITION: Not Dense. The breasts are almost entirely fatty. FINDINGS: There is no evidence of suspicious mass, calcification, or architectural distortion to sugg est malignancy in either breast. There has been no suspicious interval change. IMPRESSION: 1. No mammographic evidence of malignancy. 2. Recommend routine screening mammography in one year. BI-RADS Category 1: Negative Reviewed, dictated and finalized at location L. [employer]PECT[employer]
== END 2024-04-14 14:46 | disposition home or self-care (01) ==
LOC: MICIMG 14:46
PROVIDERS: PCP Nurse Practitioner Family; Visit Provider Nurse Practitioner Family
DX: Z12.31 Encounter for screening mammogram for malignant neoplasm of breast (principal)
CPT/HCPCS: 77063; 77067

== ENCOUNTER 2024-04-17 08:29 | Outpatient (CLI) | payer MEDICARE, SELFPAY ==
--- NOTE | ~2024-04-17 | US_ITS ---
EXAMINATION: US venous doppler [facility] DATE: 04/17/2024 09:03 INDICATION: Acute embolism and thrombosis of unspecified deep vein. TECHNIQUE: Grayscale ultrasound images without and with compression and Doppler ultrasound images of the left lower extremity veins were obtained. COMPARISON: None. FINDINGS: The left popliteal vein remains partially compressible with persistent nonocclusive peripheral hypoec hoic chronic thrombus with well-defined linear echogenic peripheral margin. The visualized portions o f left common femoral vein, profunda (deep) femoral vein, femoral vein, peroneal veins, posterior tib ial veins, gastrocnemius vein and proximal to mid greater saphenous vein remain patent. IMPRESSION: 1. Unchanged chronic deep venous thrombosis in the left popliteal vein. No new deep venous thrombosi s in the left lower limb. Reviewed, dictated and finalized at location B. E GRINDER IMPRESSION: 1. Unchanged chronic deep venous thrombosis in the left popliteal vein. No new deep venous thrombosis in the left lower limb.
== END 2024-04-17 08:30 | disposition home or self-care (01) ==
PROVIDERS: PCP Nurse Practitioner Family; Visit Provider Nurse Practitioner Family
DX: I82.532 Chronic embolism and thrombosis of left popliteal vein (principal)
CPT/HCPCS: 93971

== ENCOUNTER → 2024-07-21 09:06 | Outpatient (CLI) | payer MEDICARE, SELFPAY ==
--- NOTE | ~2024-07-21 | XR_ITS ---
Left Shoulder Technique: AP and axillary views were obtained. Clinical History: Pain Findings: No fracture or dislocation is seen. Osseous alignment is anatomic. The glenohumeral and acr omioclavicular joint spaces are preserved. Soft tissues are unremarkable. Impression: Unremarkable left shoulder radiographs. Reviewed, dictated and finalized at [facility]. Impression: Unremarkable left shoulder radiographs.
--- OUTSIDE RECORDS SUMMARY | 2024-07-21 09:14 | XMS_ITS | Referral Summary ---
Author Organization [facility] Address [facility] [place] [address] Care Team Providers Care Injection Mold Tooling Technician Name Role Phone Raphael Palencia DO Unavailable Maisha Alicea NP Primary Care Provider [phone] Allergies Active Allergy Reactions Criticality Noted Date Comments Hydrocodone Hives Medium 03/28/2020 Other reaction(s): HIVES Medications multivitamin with folic acid 400 mcg tablet Take 1 tablet by mouth daily 30 tablet 11 4 Active folic acid (FOLVITE) 1 mg tablet Take 1 tablet (1 mg total) by mouth daily 30 tablet 11 4 Active acetaminophen (TYLENOL) 325 mg tablet Take 2 tablets (650 mg total) by mouth every 4 (four) hours as needed for pain 4 Active Eliquis 5 mg tablet Take 1 tablet (5 mg total) by mouth 2 (two) times a day 4 Active lisinopriL (PRINIVIL,ZESTRIL) 10 mg tablet Take 1 tablet (10 mg total) by mouth daily 4 Active carBAMazepine ER (CARBATROL) 300 mg 12 hr capsuleIndications :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) Take 1 capsule (300 mg total) by mouth 2 (two) times a day 60 capsule 11 4 08/16/19 25 Active gabapentin (NEURONTIN) 400 mg capsuleIndications :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) Take 2 capsules (800 mg total) by mouth 3 (three) times a day 180 capsule 11 4 08/16/19 25 Active famotidine (PEPCID) 20 mg tablet TAKE 1 TABLET BY MOUTH ONCE DAILY AT BEDTIME NEEDED FOR HEARTBURN [address] (PROTONIX) 40 mg EC tablet Take 1 tablet (40 mg total) by mouth every morning 4 Active QUEtiapine (SEROquel) 25 mg tablet TAKE 3 TABLETS BY MOUTH EVERY DAY AT BEDTIME 4 Active ondansetron ODT (ZOFRAN-ODT) 8 mg disintegrating tabletIndications: Prevention of Post-Operative Nausea and Vomiting Take 1 tablet (8 mg total) by mouth every 8 (eight) hours as needed for nausea or vomiting 12 tablet 1 4 Active oxyCODONE-acetamin ophen (PERCOCET) 5-325 mg per tabletIndications: Pain Take 1 tablet by mouth every 6 (six) hours as needed for pain 6 tablet 4 Active Active Problems Problem Noted Date Diagnosed Date Closed fracture of right distal radius 4 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 CT angiogram demonstrates no cerebral aneurysm. At this time she can use lxcu-cub-xnvvlad anti-inflammatories on an as-needed basis for any exertional headache she may experience. Assessment & Plan (04/19/2020 2:56 PM BURRER MARKER AXLE): Patient presents with new onset exertional headache with a past history of prior aneurysm clipping. This potentially represents a new aneurysm which could be threatening to lie for bodily function. I will retrieve medical records from [facility] to include emergency room documentation, neuroimaging reports, and laboratory assessment. In addition I will check a CT angiogram of the brain to screen for aneurysm as she cannot have an MRI with her pre 1980 cerebral aneurysm clipping. I will see her back in the office thereafter. She has been counseled that if the headaches would worsen or persist she should return immediately to the closest emergency room for emergent evaluation. History of brain shunt 03/25/2020 Hyperlipidemia 11/20/2019 Normocytic anemia 11/20/2019 S/P bariatric surgery 11/20/2019 Complex partial epilepsy wit h generalization and with nonintractable epilepsy 11/14/2019 Assessment & Plan (06/07/2020 3:48 PM CDT): Patient continues on carbamazepine ER and gabapentin with no seizures over the interval. Her medical laboratory is up-to-date and she will continue on these pharmaceutical at this time. I will see her back in the office in 1 year. Assessment & Plan (04/19/2020 2:57 PM BURRER MARKER AXLE): She remains on carbamazepine and gabapentin with no seizures in the interim. Assessment & Plan (11/14/2019 12:48 PM CDT): Patient is transferring care from [facility] to [facility]. Patient's prior medical records from [facility] been reviewed during today's visit. She has been using a combination gabapentin carbamazepine ER with good tolerability and seizure control. I have renewed her gabapentin 800 mg t.i.d. and carbamazepine ER 300 mg b.i.d. as scheduled and I will see her back in the office in 1 year. Medication monitoring encounter 11/14/2019 Assessment & Plan (06/07/2020 3:48 PM CDT): Patient's laboratory for medication monitoring have been recently performed and reviewed. Assessment & Plan (04/19/2020 2:57 PM BURRER MARKER AXLE): Recent laboratories including carbamazepine CBC and electrolytes have been reviewed. Assessment & Plan (11/14/2019 12:49 PM CDT): I have ordered a carbamazepine level, CBC, and electrolyte panel to screen for leukopenia and hyponatremia which may be associated with carbamazepine usage. 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 06/20/2012 Vitamin D deficiency 06/20/2012 Leg pain, left 01/16/2012 Tendinitis of iliotibial band 04/23/2011 Immunizations Immunization Administration Dates Next Due Influenza, Quadrivalent, Spl it, Preservative Free, Intramuscular 11/06/2019 Influenza, Trivalent, IM (MDV) 12/09/2013 Influenza, Trivalent, Preservative Free, Intramu scular 02/17/2018 Influenza, Unspecified 11/23/2022 Tdap 11/06/2019,07/26/2019 Social History Tobacco Use Types Packs/Day Years Used Date Smoking Tobacco: Never Smokeless Tobacco: Never Tobacco Cessation:Counseling Given: Not Answered AUDIT-C Answer Date Recorded Q1: How often do you have a drink containing alcohol? Never 09/27/2023 Q2: How many drinks containi ng alcohol do you have on a typical day when you are drinking? Patient does not drink Q3: How often do you have si x or more drinks on one occasion? Never 09/27/2023 Personal Safety Answer Date Recorded Have you ever been in or are you currently in a harmful physical or emotional relationship or is someone making you feel afraid or unsafe? Denies 12/03/2023 Comments No Sex and Gender Information Value Date Recorded Sex Assigned at Not on file Legal Sex Female 9:00 PM BURRER MARKER AXLE Gender Identity Not on file Sexual Orientation Not on file Last Filed Vital Signs Vital Sign Reading Time Taken Comments Blood Pressure 131/88 01/19/2024 3:39 PM BURRER MARKER AXLE Pulse 70 01/19/2024 3:39 PM BURRER MARKER AXLE Temperature 36.3 C (97.3 F) 12/03/2023 4:03 PM CDT Respiratory Rate 18 01/19/2024 3:39 PM BURRER MARKER AXLE Oxygen Saturation 99% 01/19/2024 3:39 PM BURRER MARKER AXLE Inhaled Oxygen Concentration - - Weight 88.5 kg (195 lb 3.2 oz) 01/19/2024 3:39 P M BURRER MARKER AXLE Height 152.4 cm (5') 01/19/2024 3:39 PM BURRER MARKER AXLE Body Mass Index 38.12 01/19/2024 3:39 PM BURRER MARKER AXLE Plan of Treatment Not on file Medical Devices Implanted Type Area Fermentologist Device Identifier Shelf Expiration Date Model / Serial / Lot Integra [employer] Alysa Valve Shunt Siphonguard Programmable Inline Sm [id number] - [id number] Implanted:Qty: 1 on 05/22/2023 by Howie Banerjee MD at [facility] Right: Head Integra [employer] Alysa [id number] 03/24/2025 [id number] / / [id number] [employer] Bactiseal Hakim Shunt Kit Catheter Silicone Barium Sterile [id number] - [id number] Implanted:Qty: 1 on 05/22/2023 by Howie Banerjee MD at [facility] Right: Head [employer] 11/22/2023 [id number] / / [id number] [employer] Holter Od2.5 Mm Id1.2 Mm L45 Cm Barium Impregnate Type A Atrial 911232 - [id number] Implanted:Qty: 1 on 05/22/2023 by Howie Banerjee MD at [facility] Right: Head [employer] [id number] 12/22/2026 [id number] / / [id number] [employer] Screw Kreulock Compression Titanium 3.5x14mm [id number] - [id number] Implanted:Qty: 1 on 09/21/2023 by Marysol Walton MD at [facility] Right: Wrist [employer] AR-8935CL -12 / / [employer] 3 Hole Anatomic Graft Window Radius Right Wrist Volar Narrow [id number] - [id number] Implanted:Qty: 1 on 09/21/2023 by Marysol Walton MD at [facility] Right: Wrist [employer] AR-8916VN R-03 / / [employer] Low Profile Screws 3.5mm 13mm Self Drill Solid Midfoot Cortical T Ar-8935-13 - [id number] Implanted:Qty: 1 on 09/21/2023 by Marysol Walton MD at [facility] Right: Wrist [employer] AR-8935-1 3 / / [employer] Screw Kreulock Compression Titanium 2.4x22mm [id number] - [id number] Implanted:Qty: 2 on 09/21/2023 by Marysol Walton MD at [facility] Right: Wrist [employer] AR-8724VC L-22 / / [employer] Screw Kreulock Compression Titanium 2.4x20mm [id number] - [id number] Implanted:Qty: 2 on 09/21/2023 by Marysol Walton MD at [facility] Right: Wrist [employer] AR-8724VC L-20 / / [employer] Screw Kreulock Compression Titanium 2.4x18mm [id number] - [id number] Implanted:Qty: 2 on 09/21/2023 by Marysol Walton MD at [facility] Right: Wrist [employer] AR-8724VC L-18 / / [employer] Screw Kreulock Compression Titanium 3.5x14mm [id number] - [id number] Implanted:Qty: 1 on 09/21/2023 by Marysol Walton MD at [facility] Right: Wrist [employer] AR-8935CL -14 / / Procedures Procedure Name Priority Date/Time Associated Diagnosis Comments HEPATITIS PANEL, ACUTE Routine 12/07/2013 4:43 PM CDT from Last 3 Months or Most Recently Relevant to Health Maintenance Results * Hepatitis panel, acute (12/07/2013 4:43 PM CDT) HepBsAg NONREACT NONREACTIVE 12/07/2013 5:57 PM CDT [facility] HISTORICAL RESULTS Comment: Siemens Pets are family tooaurXP using BERKLEY (chemiluminescent immunoassay) technology. NONREACTIVE: IgM antibodies to Hepatitis B Surface antigen not detected. REACTIVE: IgM antibodies to Hepatitis B Surface antigen detected. Reactive results will be confirmed by neutralization testing. HBsAb (immune status) NONREACT NONREACTIVE 12/07/2013 5:56 PM CDT [facility] HISTORICAL RESULTS Comment: Siemens CentaurXP using BERKLEY (chemiluminescent immunoassay) technology. NONREACTIVE: IgM antibodies to Hepatitis B Surface antibody not detected. REACTIVE: IgM antibodies to Hepatitis B Surface antibody detected. Hep B core IgM NONREACT NONREACTIVE 4 7:36 PM CDT [facility] HISTORICAL RESULTS Comment: Siemens CentaurXP using BERKLEY (chemiluminescent immunoassay) technology. NONREACTIVE: IgM antibodies to Hepatitis B Core antigen not detected. EQUIVOCAL: IgM antibodies to Hepatitis B Core antigen may or may not be present. Obtain a new specimen and retest. REACTIVE: IgM antibodies to Hepatitis B Core antigen detected. Hep A IgM NONREACT NONREACTIVE 12/07/2013 7:36 PM CDT [facility] HISTORICAL RESULTS Comment: Siemens CentaurXP using BERKLEY (chemiluminescent immunoassay) technology. NONREACTIVE: IgM antibodies to Hepatitis A not detected. This does not exclude possibility of exposure to Hepatitis A or early acute infection. EQUIVOCAL:IgM antibodies to Hepatitis A may or may not be present. Suggest recollection and retest. REACTIVE: Antibodies to Hepatitis A detected. Hep C Ab NONREACT NONREACTIVE 12/07/2013 7:35 PM CDT [facility] HISTORICAL RESULTS Comment: Siemens CentaurXP using BERKLEY (chemiluminescent immunoassay) technology. NONREACTIVE: Antibodies to Hepatitis C not detected. This does not exclude early acute Hepatitis C infection, possibility of exposure to Hepatitis C, antibodies below detection limit, or to lack of antibody reactivity to the antigen used in this assay. EQUIVOCAL: Antibodies to Hepatitis C may or may not be present. Sample to be confirmed by real-time PCR method. REACTIVE: Antibodies to Hepatitis C detected. 12/07/2013 4:43 PM CDT 12/07/2013 4:55 PM CDT Narrative [facility] HISTORICAL RESULTS - 12/07/2013 7:35 PM CDT Comment Pt in direct admit [id number] LARM BC Draw us Cholo Tee DO LAB MICROBIOLOGY - GENER AL ORDERABLES Final Result [facility] HISTORICAL RESULTS from Last 3 Months or Most Recently Relevant to Health Maintenance Insurance [facility] MEDICARE [facility]ANTAGE [facility] Address: [address] [address] [place] [address] [employer] MEDICARE HMO <no value> Advance Directives For more information, please contact: [phone] * Full Code (Latest Code Status on File) Date Activated Date Inactivated Comments 05/18/2023 4:10 PM 05/24/2023 8:18 PM Care Teams Injection Mold Tooling Technician Relationship Specialty Start Date End Date Maisha Alicea NP [address] [address] PCP - General Family Medicine 05/24/23 Raphael Palencia DO [address] [place] [address] Family Medicine 03/25/20
--- OUTSIDE RECORDS SUMMARY | 2024-07-21 09:14 | XMS_ITS | Encounter Summary ---
Author Organization [facility] Address [address] [place] [address] Care Team Providers Care Operater Name Role Phone Cholo Tee DO Primary Care Provider + Raphael Palencia DO Primary Care Provide r Raphael Palencia DO Primary Care Provide r Cholo Tee DO Unavailable [phone] Raphael Palencia DO Unavailable [phone] Maisha Alicea NP Primary Care Provider [phone] Encounter Details Date Type Department Care Team (Late st Contact Info) Description 05/30/2013 Orders Only [facility] Health Information Management [address] [place] [address] Scanning, Provider Social History Tobacco Use Types Packs/Day Years Used Date Smoking Tobacco: Never Assessed Comments Unknown Sex and Gender Information Value Date Recorded Sex Assigned at Not on file Legal Sex Female 9:00 PM HOSPITAL LABORATORY TECHNICIAN Gender Identity Not on file Sexual Orientation Not on file documented as of this encounter Plan of Treatment Not on file documented as of this encounter Procedures Procedure Name Priority Date/Time Associated Diagnosis Comments SCAN - LABS 05/30/2013 documented in this encounter Results * SCAN - LABS (05/30/2013) us Provider Scanning Final Result documented in this encounter Visit Diagnoses Not on filedocumented in this encounter Additional Health Concerns Infection Onset Date Last Indicated Resolved Time COVID: Suspected 05/12/2023 05/12/2023 05/12/2023 3:25 AM CDT documented as of this encounter Care Teams Operater Relationship Specialty Start Date End Date Cholo Tee DO PCP - General Family Medicine 09/27/18 09/24/19 Raphael Palencia DO [address] [place] [id number] PCP - General Family Medicine 09/25/19 04/18/20 Raphael Palencia DO [address] [place] [id number] PCP - General 04/19/20 02/12/22 Maisha Alicea NP [address] [place] [id number] PCP - General Family Medicine 05/24/23 Cholo Tee DO Family Medicine 09/25/19 04/18/20 Raphael Palencia DO [address] [place] [address] Family Medicine 03/25/20 documented as of this encounter
--- OUTSIDE RECORDS SUMMARY | 2024-07-21 09:14 | XMS_ITS | Clinical Summary ---
Author Organization [facility] Address [facility] [place] [address] Care Team Providers Care Assistant Producer Name Role Phone Raphael Palencia DO Unavailable Maisha Alicea NP Primary Care Provider [phone] Allergies Active Allergy Reactions Criticality Noted Date [...] aneurysm. At this time she can use hutt-uoz-rsdcioe anti-inflammatories on an as-needed basis for any exertional headache she may experience. Assessment & Plan (04/19/2020 2:56 PM ASIAN STUDIES PROFESSOR): Patient presents with new onset exertional headache with a past history of prior aneurysm clipping. This potentially represents a new aneurysm which could be threatening to lie for bodily function. I will retrieve medical records from [facility] to include emergency room documentation, neuroimaging reports, [...] year. Assessment & Plan (04/19/2020 2:57 PM ASIAN STUDIES PROFESSOR): She remains on carbamazepine and gabapentin with no seizures in the interim. Assessment & Plan (11/14/2019 12:48 PM CDT): Patient is transferring care from [facility] to [facility]. Patient's prior medical records from [facility] been reviewed during today's visit. She [...] reviewed. 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, last revised age 8 GASTRIC BYPASS OPEN CHOLECYSTECTOMY REDUCTION MAMMAPLASTY Bilateral ABDOMINOPLASTY CONSTRUCTION CRAFT LABORER SHUNT INSERTION 05/22/2023 ENDOMETRIAL ABLATION W/ ELANA Medical History Medical History Date Comments Seizures (HCC) epileptic seizur es, last one was about 4 months ago HLD (hyperlipidemia) Irritable bowel syndrome Depression Hx of blood clots Hydrocephalus (HCC) Hypertension GERD (gastroesophageal reflux disease) Family History Medical History Relation Name Comments COPD Mother Anesthesia problems Neg Hx Relation Name Status Comments Father Mother Social History Tobacco Use Types Packs/Day Years [...] on file Legal Sex Female 9:00 PM ASIAN STUDIES PROFESSOR Gender Identity Not on file Sexual Orientation Not on file Obstetrics History Last Filed Vital Signs Vital Sign Reading Time Taken Comments Blood Pressure 131/88 01/19/2024 3:39 PM ASIAN STUDIES PROFESSOR Pulse 70 01/19/2024 3:39 PM ASIAN STUDIES PROFESSOR Temperature 36.3 C (97.3 F) 12/03/2023 4:03 PM CDT Respiratory Rate 18 01/19/2024 3:39 PM ASIAN STUDIES PROFESSOR Oxygen Saturation 99% 01/19/2024 3:39 PM ASIAN STUDIES PROFESSOR Inhaled Oxygen Concentration - - Weight 88.5 kg (195 lb 3.2 oz) 01/19/2024 3:39 P M ASIAN STUDIES PROFESSOR Height 152.4 cm (5') 01/19/2024 3:39 PM ASIAN STUDIES PROFESSOR Body Mass Index 38.12 01/19/2024 3:39 PM ASIAN STUDIES PROFESSOR Plan of Treatment Health Maintenance Due Date Last Done Comments Breast Cancer Screening-Mammogram 1975 Cervical Cancer Screening 1975 Colon Cancer Screening-Colonoscopy 1975 Depression Screening 1975 Hepatitis B Screening 11/04/1993 Regular Well Visit/Exam 18-64 11/04/1993 Covid-19 Vaccine ( - season) 2023 07/13/2020 DTaP/Tdap/Td Vaccine (3 - Td or Tdap) 2029 11/06/2019, 07/26/2019 Hepatitis C Screening Completed 12/07/2013 Influenza Vaccine Completed 01/11/2024, , 11/06/2019, Additional history exists Pneumococcal vaccine <65 Aged Out No longer eligible based on patient's age to complete this topic Medical Devices Implanted Type Area Clinical Product Manager Device Identifier Shelf Expiration Date Model / Serial / Lot Denwa Communicationsa Skribit Alysa Valve Shunt Siphonguard Programmable Inline Sm [id number] - [id number] Implanted:Qty: 1 on 05/22/2023 by Howie Banerjee MD at [facility] Right: Head Integra Skribit Alysa [id number] 03/24/2025 [id number] / / [id number] Enrique [employer] Hoppit [facility] Bactiseal Hakim Shunt Kit Catheter Silicone Barium Sterile [id number] - [id number] Implanted:Qty: 1 on 05/22/2023 by Howie Banerjee MD at [facility] Right: Head [employer] 11/22/2023 [id number] / / [id number] Enrique [employer] Enrique [facility] Holter Od2.5 Mm Id1.2 Mm L45 Cm Barium Impregnate Type A Atrial [id number] - [id number] Implanted:Qty: 1 on 05/22/2023 by Howie Banerjee MD at [facility] Right: Head Enrique [employer] Enrique [employer]ana [id number] 12/22/2026 [id number] / / [id number] [employer] Screw Kreulock Compression Titanium 3.5x14mm [id number] - [id number] Implanted:Qty: 1 on 09/21/2023 by Marysol Walton MD at [facility] Right: Wrist [employer] AR-8935CL -12 / / [employer] 3 Hole Anatomic Graft Window Radius Right Wrist Volar Narrow [id number] - [id number] Implanted:Qty: 1 on 09/21/2023 by Marysol Walton MD at [facility] Right: Wrist [employer] AR-8916VN R-03 / / [employer] Low Profile Screws 3.5mm 13mm Self Drill Solid Midfoot Cortical T Ar-8935-13 - [id number] Implanted:Qty: 1 on 09/21/2023 by Marysol Walton MD at [facility] Right: Wrist [employer] AR-8935-1 3 / / [employer] Screw Kreulock Compression Titanium 2.4x22mm [id number] - [id number] Implanted:Qty: 2 on 09/21/2023 by Marysol Walton MD at [facility] Right: Wrist [employer] AR-8724VC L-22 / / [employer] Screw Kreulock Compression Titanium 2.4x20mm [id number] - [id number] Implanted:Qty: 2 on 09/21/2023 by Marysol Walton MD at [facility] Right: Wrist [employer] AR-8724VC L-20 / / [employer] Screw Kreulock Compression Titanium 2.4x18mm [id number] - [id number] Implanted:Qty: 2 on 09/21/2023 by Marysol Walton MD at [facility] Right: Wrist [employer] AR-8724VC L-18 / / [employer] Screw Kreulock Compression Titanium 3.5x14mm [id number] - [id number] Implanted:Qty: 1 on 09/21/2023 by Marysol Walton MD at [facility] Right: Wrist [employer] AR-8935CL -14 / / Procedures Procedure Name Priority Date/Time Associated Diagnosis Comments HEPATITIS PANEL, ACUTE Routine 12/07/2013 4:43 PM CDT from Last 3 Months or Most Recently Relevant to Health Maintenance Results * Hepatitis panel, acute (12/07/2013 4:43 PM CDT) HepBsAg NONREACT NONREACTIVE Comment: Siemens PlaceSpeakaurXP using BERKLEY (chemiluminescent immunoassay) technology. NONREACTIVE: IgM antibodies to Hepatitis B Surface antigen not detected. REACTIVE: IgM antibodies to Hepatitis B Surface antigen detected. Reactive results will be confirmed by neutralization testing. HBsAb (immune status) NONREACT NONREACTIVE 12/07/2013 5:56 PM CDT [facility] HISTORICAL RESULTS Comment: Siemens PlaceSpeakaurXP using BERKLEY (chemiluminescent immunoassay) technology. NONREACTIVE: IgM antibodies to Hepatitis B Surface antibody not detected. REACTIVE: IgM antibodies to Hepatitis B Surface antibody detected. Hep B core IgM NONREACT NONREACTIVE 4 7:36 PM CDT [facility] HISTORICAL RESULTS Comment: Siemens PlaceSpeakaurXP using BERKLEY (chemiluminescent immunoassay) technology. NONREACTIVE: IgM antibodies to Hepatitis B Core antigen not detected. EQUIVOCAL: IgM antibodies to Hepatitis B Core antigen may or may not be present. Obtain a new specimen and retest. REACTIVE: IgM antibodies to Hepatitis B Core antigen detected. Hep A IgM NONREACT NONREACTIVE 12/07/2013 7:36 PM CDT [facility] HISTORICAL RESULTS Comment: Siemens CentaurXP using BERKLEY (chemiluminescent immunoassay) technology. NONREACTIVE: IgM antibodies to Hepatitis A not detected. This does not exclude possibility of exposure to Hepatitis A or early acute infection. EQUIVOCAL:IgM antibodies to Hepatitis A may or may not be present. Suggest recollection and retest. REACTIVE: Antibodies to Hepatitis A detected. Hep C Ab NONREACT NONREACTIVE Comment: Siemens CentaurXP using BERKLEY (chemiluminescent immunoassay) [...] PM CDT 12/07/2013 4:55 PM CDT Narrative [facility] HISTORICAL RESULTS - 12/07/2013 7:35 PM CDT Comment Pt in direct admit [id number] LARM BC Draw Cholo Tee DO LAB MICROBIOLOGY - GENER AL ORDERABLES Final Result [facility] HISTORICAL RESULTS from Last 3 Months or Most Recently Relevant to Health Maintenance Insurance [facility] MEDICARE ADVANTAGE HUMANA MEDICARE HMO HUMANA MEDICARE HMO [id number] <no value> Advance Directives For more information, please contact: [phone] * Full Code (Latest Code Status on File) Date Activated Date Inactivated Comments 05/18/2023 4:10 PM 05/24/2023 8:18 PM Care Teams Assistant Producer Relationship Specialty Start Date End Date Maisha Alicea NP [address] [place] [id number] PCP - General Family Medicine 05/24/23 Raphael Palencia DO [address] [place] [address] [id number] [facility] Medicine 03/25/20
--- OUTSIDE RECORDS SUMMARY | 2024-07-21 09:14 | XMS_ITS | Clinical Summary ---
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 Operator Name Role Phone Raphael Palencia Primary Care Provider + Allergies Active Allergy Reactions Criticality Noted Date Comments Hydrocodone Rash 05/15/2023 Medications No known medications Active Problems Problem Noted Date Diagnosed Date Constipation 05/17/2023 Urinary retention 05/17/2023 Parinaud syndrome 05/16/2023 Social History Tobacco Use Types Packs/Day Years Used Date Smoking Tobacco: Never Smokeless Tobacco: Never Alcohol Use Standard Drinks/Week Comments Never 0 (1 standard drink = 0.6 oz pur e alcohol) [facility] Utilities Answer Date Recorded In the past 12 months has Health Data [employer]der, gas, oil, or water company threatened to shut off services in your home? Patient declined 05/16/2023 Social Connection and Isolation Panel [NHANES] A nswer Date Recorded In a typical week, how many times do you talk on the phone with family, friends, or neighbors? Patient declined 05/16/2023 How often do you get togethe r with friends or relatives? Patient declined 05/16/2023 How often do you attend voodoo or holiness serv ices? Patient declined 05/16/2023 Do you belong to any clubs o r organizations such as voodoo groups, unions, fraternal or athletic groups, or school groups? Patient declined 05/16/2023 How often do you attend meet ings of the clubs or organizations you belong to? Patient declined 05/16/2023 Are you , , di vorced, , never , or living with a partner? Patient declined 05/16/2023 AUDIT-C Answer Date Recorded Q1: How often do you have a drink containing alc ohol? Patient declined 05/16/2023 Q2: How many drinks containi ng alcohol do you have on a typical day when you are drinking? Patient declined 05/16/2023 Q3: How often do you have si x or more drinks on one occasion? Patient declined 05/16/2023 Overall Financial Resource Strain (CARDIA) Answe r Date Recorded How hard is it for you to pa y for the very basics like food, housing, medical care, and heating? Patient declined 05/16/2023 [facility] - Occupational Stress Questionnaire Answer Date Recorded Do you feel stress - tense, restless, nervous, or anxious, or unable to sleep at night because your mind is troubled all the time - these days? Patient declined 05/16/2023 Exercise Vital Sign Answer Date Recorde d On average, how many days pe r week do you engage in moderate to strenuous exercise (like a brisk walk)? Patient declined On average, how many minutes do you engage in exercise at this level? Patient declined 05/16/2023 Hunger Vital Sign Answer Date Recorded Within the past 12 months, y ou worried that your food would run out before you got the money to buy more. Patient declined Within the past 12 months, t he food you bought just didn't last and you didn't have money to get more. Patient declined PRAPARE - Transportation Answer Date Re corded In the past 12 months, has l ack of transportation kept you from medical appointments or from getting medications? Patient declined 05/16/2023 In the past 12 months, has l ack of transportation kept you from meetings, work, or from getting things needed for daily living? Patient declined 05/16/2023 Housing Stability Vital Sign Answer Daryn e Recorded In the last 12 months, was t here a time when you were not able to pay the mortgage or rent on time? Patient declined 05/16/19 24 In the last 12 months, how many places have you lived? 1 05/16/2023 In the last 12 months, was t here a time when you did not have a steady place to sleep or slept in a snf (including now)? Patient declined 05/16/2023 Comments No Sex and Gender Information Value Date Recorded Sex Assigned at Not on file Legal Sex Female 7:06 PM CDT Gender Identity Not on file Sexual Orientation Not on file Last Filed Vital Signs Vital Sign Reading Time Taken Comments Blood Pressure 99/55 05/17/2023 4:00 PM CDT Pulse 67 05/17/2023 4:00 PM CDT Temperature 37.1 C (98.8 F) 05/17/2023 4:00 PM CDT Respiratory Rate 16 05/17/2023 4:00 PM CDT Oxygen Saturation 93% 05/17/2023 4:00 PM CDT Inhaled Oxygen Concentration - - Weight 99.8 kg (220 lb) 05/15/2023 7:12 PM CDT Height 152.4 cm (5') 05/15/2023 7:12 PM CDT Body Mass Index 42.97 05/15/2023 7:12 PM CDT Plan of Treatment Health Maintenance Due Date Last Done Comments Hepatitis C Virus (HCV) Screening 1975 Mammogram 1975 Hepatitis B Immunization (1 of 3 - 19+ 3-dose series) 11/04/1994 Pap Smear 11/04/1996 Cervical Cancer Screening (CCS) 11/04/2005 HPV/Cotest 11/04/2005 Discussion re Starting/Frequency of Mammograms 2015 Colonoscopy 11/04/2020 Colorectal Cancer Screening 11/04/2020 Influenza Immunization (#1) 2023 10/0 03/2022, 11/23/2022, 11/06/2019, Additional history exists SARS-COV-2 Immunization ( season) 2023 07/13/2020 Respiratory Syncytial Virus (RSV) Immunization (Adult) (1 - 1-dose 75+ series) 11/04/2050 DTaP/Tdap/Td Immunization Discontinued 11/06/2019, 04/2019 TdaP Immunization Completed 11/06/2019, 07/26/2019 Meningococcal Immunization (ACWY) Aged Out No longer eligible based on patient's age to complete this topic Pneumococcal Immunization Combined Aged Out No longer eligible based on patient's age to complete this topic Rotavirus Immunization Aged Out No lo nger eligible based on patient's age to complete this topic Insurance MEDICARE C HUMANA Advance Directives * Full Code (Latest Code Status on File) Date Activated Date Inactivated Comments 05/16/2023 1:22 PM 05/18/2023 12:51 AM CPR-Full Tr eatment: FULL ARREST: Attempt Resuscitation/CPR wit intubation and mechanical ventilation. PRE-ARREST: Use entire range of life support measures to stabilize the patient. Care Teams Butadiene Compressor Operator Relationship Specialty Start Date End Date Raphael Palencia DO [address] [place] [id number] PCP - General Family Medicine 05/16/23
== END ==
PROVIDERS: PCP Nurse Practitioner Family; Visit Provider Nurse Practitioner Family
DX: M25.512 Pain in left shoulder (principal)
CPT/HCPCS: 73030